=== PATIENT | female | born 1960 | race Caucasian/White ===

== ENCOUNTER 2021-02-22 16:08 | Outpatient (CLI) | payer OTHER, SELFPAY ==
--- NOTE | ~2021-02-22 | MM_ITS ---
EXAMINATION: MM screening ivone BI w candy HISTORY: .... TECHNIQUE: Craniocaudal and mediolateral oblique 3-D tomosynthesis images were obtained and synthetic 2-D images were generated. CAD analysis was submitted and interpreted. COMPARISON: 01/12/2019, 11/21/2017, 11/19/2016 bilateral digital screening mammogram examinations BREAST PARENCHYMAL COMPOSITION: The breasts are almost entirely fatty. FINDINGS: There is no evidence of suspicious mass, calcification, or architectural distortion to sugg est malignancy in either breast. There has been no suspicious interval change. IMPRESSION: 1. No mammographic evidence of malignancy. 2. Recommend routine screening mammography in one year. BI-RADS Category 1: Negative Reviewed, dictated and finalized at location A.
== END 2021-02-22 16:09 | disposition home or self-care (01) ==
LOC: ANHIMG 16:12
PROVIDERS: PCP Family Medicine; Visit Provider Family Medicine
DX: Z12.31 Encounter for screening mammogram for malignant neoplasm of breast (principal)
CPT/HCPCS: 77063; 77067

== ENCOUNTER 2021-10-09 01:35 | Day surgery (SDC) | payer OTHER, SELFPAY ==
[2021-09-25 14:57] VITALS: BMI 25.8
--- NOTE | 2021-10-09 08:23 | WPDANESEPPF ---
Anes - Initial Pre Proc Eval Procedure: Operation Date: 10/09/21 10:00 Proposed Procedures p Screening Colonoscopy - Lonnie Hargrove MD Date/Time: 10/09/21 08:23 Surgeon: Lonnie Hargrove MD Pre Op Diagnosis: hx of colon polyps, neoplasm screening Patient Data Age: 61 Gender: F Height: 1.63 m Weight: 68.2 kg Allergies Allergy/AdvReac Type Severity Reaction Status Date / Time Penicillins Allergy Mild Rash Verified 09/25/21 14:57 Home Medications Medication Instructions Recorded Confirmed Type bupropion HCl 300 mg 24 hr tablet, 300 mg PO DAILY 09/06/21 09/25/21 History extended release sodium sul 1.479 gram-potas ch See Rx Instructions PO PER PKG DIR 09/22/21 09/25/21 Rx 0.188 gram-magnes sul 0.225 gram #24 tabs tablet (Sutab) atorvastatin 40 mg tablet 40 mg PO QHS #90 tabs 09/27/21 10/09/21 Rx Patient hx anesthesia problems: none Family hx anesthesia problems: none Results Review: All pre-operative results and documents have been reviewed as part of the pre-operative evaluation. [facility] Past Medical History Medical History Anxiety Dyslipidemia History of colon polyps History of deep venous thrombosis (DVT) of distal vein of left lower extremity (~2009) History of shingles (~2016) Surgical History Surgical History H/O: hysterectomy (~2012) History of carpal tunnel surgery (~2011) Left - 2012 Right - 2017 Family History Family History Mother Acute myocardial infarction Father Family history of emphysema Social History Social History Smoking status: Never smoker Alcohol intake: current Alcohol use details: 4 beers or less per week Substance use: current Substance use type: marijuana Other substance usage details: gummy marijuana about once a week Living arrangements: other Additional living arrangements comments: [place] - significant other Additional occupation/education comments: Teacher Spiritual care concerns: No Anes - Eval Final PreProcedure Day of Procedure 10/09/21 08:23 Patient weight: normal Heart: regular rate and rhythm Lungs: clear to auscultation and normal air movement Airway: Mallampati scale class II Neurological: alert and oriented Last oral intake: >/= 8 hours ASA classification: II Emergent: no Anesthetic plan: proceed Anesthesia type and monitoring: general GIVS Results Review: All pre-operative results and documents have been reviewed as part of the pre-operative evaluation. Informed Consent: The patient's anesthetic plan and its attendant risks and benefits were discussed with the patient/family/POA. Questions were solicited and answers provided to the satisfaction of the patient/family/POA.
[2021-10-09 08:43] VITALS: BP 111/63; PULSE 62; RESP 17; TEMP 36.6; O2SAT 100; BMI 37.0
[2021-10-09] MEDS: LACTATED RINGERS 1,000 ML 150 ML IV CONT (08:52)
--- NOTE | 2021-10-09 09:18 | P.HP_ITS ---
H&P: HPI History of Present Illness Date/Time: 10/09/21 09:18 Chief Complaint: History of adenomatous colon polyp. Narrative: This is a 61-year-old white female patient who presents for screening colonoscopy. She has a history of a benign adenomatous colon polyp removed from the colon 2016. Patient's current weight appetite bowel movements are normal. She denies abdominal pain. She has had no bleeding. Family history is noncontributory. Review of Systems Review of Systems: Review of systems noncontributory. [facility] Past Medical History Medical History (Updated 10/09/21 @ 09:19 by Lonnie Hargrove MD) Anxiety Dyslipidemia History of colon polyps History of deep venous thrombosis (DVT) of distal vein of left lower extremity (~2009) History of shingles (~2016) Surgical History Surgical History H/O: hysterectomy (~2012) History of carpal tunnel surgery (~2011) Left - 2012 Right - 2017 Family History Family History Mother Acute myocardial infarction Father Family history of emphysema Social History Social History Smoking status: Never smoker Alcohol intake: current Alcohol use details: 4 beers or less per week Substance use: current Substance use type: marijuana Other substance usage details: gummy marijuana about once a week Living arrangements: other Additional living arrangements comments: [place] - significant other Additional occupation/education comments: Teacher Spiritual care concerns: No Meds Home Medications and Allergies Home Medications Medication Instructions Recorded Confirmed Type bupropion HCl 300 mg 24 hr tablet, 300 mg PO DAILY 09/06/21 09/25/21 History extended release sodium sul 1.479 gram-potas ch See Rx Instructions PO PER PKG DIR 09/22/21 09/25/21 Rx 0.188 gram-magnes sul 0.225 gram #24 tabs tablet (Sutab) atorvastatin 40 mg tablet 40 mg PO QHS #90 tabs 09/27/21 10/09/21 Rx Allergies Allergy/AdvReac Type Severity Reaction Status Date / Time Penicillins Allergy Mild Rash Verified 09/25/21 14:57 Vital Signs Vital Signs - 24 hr 06/06/22 08:43 Temperature 97.9 F Pulse Rate 62 Respiratory Rate 17 Blood Pressure 111/63 Pulse Oximetry 100 Oxygen Delivery Room Air Exam Narrative: Physical exam reveals patient to be alert. Vital signs stable. HEENT exam is unremarkable. Patient is anicteric. Lungs are clear to auscultation and percussion. Heart is without murmur or extra sounds. Abdom inal exam bowel sounds are present soft nontender with no organomegaly. Digital external rectal exam is normal. Assessment and Plan Assessment and plan (1) History of colon polyps: Code(s): Z86.010 - Personal history of colonic polyps Status: Acute Assessment and Plan: Patient has a history of adenomatous colon polyps removed at the time of colonoscopy in 2017. Patient presents today for surveillance colonoscopy. High-fiber diet advised.
[2021-10-09] MEDS: SIMETHICONE ORAL SUSPENSION 20 MG/0.3 ML 30 ML BOTTLE 0.6 ML IRRIGATION (09:39)
[2021-10-09 09:49] VITALS: BP 91/46; PULSE 61; RESP 17; O2SAT 97
[2021-10-09 09:59] VITALS: BP 85/42; PULSE 60; RESP 17; O2SAT 97
[2021-10-09 10:07] VITALS: BP 118/68; PULSE 52; RESP 17; O2SAT 98
== END 2021-10-09 10:28 | disposition home or self-care (01) ==
PROVIDERS: PCP Family Medicine; Visit Provider Internal Medicine Gastroenterology
PROC: 0DJD8ZZ Inspection of Lower Intestinal Tract, Via Natural or Artificial Opening Endoscopic (ICD-10-PCS; CPT 45378; principal; 2021-10-09 10:00)
DX: Z12.11 Encounter for screening for malignant neoplasm of colon (principal); K63.5 Polyp of colon; K64.8 Other hemorrhoids; E78.5 Hyperlipidemia, unspecified; F41.9 Anxiety disorder, unspecified; Z86.718 Personal history of other venous thrombosis and embolism; F12.90 Cannabis use, unspecified, uncomplicated
CPT/HCPCS: 45385; 88305; J2704; J7120

== ENCOUNTER 2023-08-06 14:32 | Outpatient (CLI) | payer OTHER, SELFPAY ==
--- NOTE | ~2023-08-06 | MM_ITS ---
EXAMINATION: MM screening ivone BI w candy HISTORY: Screening TECHNIQUE: Craniocaudal and mediolateral oblique 3-D tomosynthesis images were obtained and synthetic 2-D images were generated. CAD analysis was submitted and interpreted. COMPARISON: Comparison to multiple prior studies sequentially, with oldest reviewed study dated 11/21. BREAST PARENCHYMAL COMPOSITION: Not dense: There are scattered areas of fibroglandular density. FINDINGS: There is no evidence of suspicious mass, calcification, or architectural distortion to sugg est malignancy in either breast. There has been no suspicious interval change. IMPRESSION: 1. No mammographic evidence of malignancy. 2. Recommend routine screening mammography in one year. BI-RADS Category 1: Negative Reviewed, dictated and finalized at location A.
== END 2023-08-06 14:33 | disposition home or self-care (01) ==
PROVIDERS: PCP Family Medicine; Visit Provider Family Medicine
DX: Z12.31 Encounter for screening mammogram for malignant neoplasm of breast (principal)
CPT/HCPCS: 77063; 77067

== ENCOUNTER 2024-09-05 08:02 | Outpatient (CLI) | payer OTHER, SELFPAY ==
--- NOTE | ~2024-09-05 | MM_ITS ---
EXAMINATION: MM screening ivone BI w candy HISTORY: Screening TECHNIQUE: Craniocaudal and mediolateral oblique 3-D tomosynthesis images were obtained and synthetic 2-D images were generated. CAD analysis was submitted and interpreted. COMPARISON: Comparison to multiple prior studies sequentially, with oldest reviewed study dated 11/03. BREAST PARENCHYMAL COMPOSITION: Not dense: There are scattered areas of fibroglandular density. FINDINGS: There is no evidence of suspicious mass, calcification, or architectural distortion to sugg est malignancy in either breast. There has been no suspicious interval change. IMPRESSION: 1. No mammographic evidence of malignancy. 2. Recommend routine screening mammography in one year. BI-RADS Category 1: Negative Reviewed, dictated and finalized at location A.
--- OUTSIDE RECORDS SUMMARY | 2024-09-05 15:53 | XMS_ITS | Referral Summary ---
Author Organization [facility] [place] [address] [facility] Address [address] [place] [address] Care Team Providers Care Product Coordinator Name Role Phone Mariela Villa MD Primary Care Provider Allergies Active Allergy Reactions Criticality Noted Date Comments Penicillins Medications buPROPion XL (WELLBUTRIN XL) 300 mg 24 hr tablet Take by mouth daily Active ondansetron (Zofran) 4 mg tabletIndicatio ns:Acute non-recurrent maxillary sinusitis Take 1 tablet (4 mg total) by mouth every 8 (eight) hours as needed for nausea or vomiting 20 tablet 09/10/2021 Active azithromycin (ZITHROMAX) 250 mg tabletIndicatio ns:Acute non-recurrent maxillary sinusitis Take 2 tablets the first day, then 1 tablet daily for 4 days. 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 Gender Identity Not on file Sexual Orientation Not on file Last Filed Vital Signs Vital Sign Reading Time Taken Comments Blood Pressure 116/74 09/10/2021 9:33 AM CDT Pulse 74 09/10/2021 9:33 AM CDT Temperature 36.4 C (97.6 F) 09/10/2021 9:33 AM CDT Respiratory Rate 16 09/10/2021 9:33 AM CDT Oxygen Saturation 98% 09/10/2021 9:33 AM CDT Inhaled Oxygen Concentration - - Weight 66.3 kg (146 lb 3.2 oz) 09/10/2021 9:33 A M CDT Height 161.3 cm (5' 3.5 ) 09/10/2021 9:33 AM CDT Body Mass Index 25.49 09/10/2021 9:33 AM CDT Plan of Treatment Not on file Insurance [facility] CHOICE PLUS Care Teams Product Coordinator Relationship Specialty Start Date End Date Mariela Villa MD PCP - General Family Practice 09/10/21
--- OUTSIDE RECORDS SUMMARY | 2024-09-05 15:53 | XMS_ITS | Clinical Summary ---
Author Organization [facility] [place] [address] [facility] Address [address] [place] [address] Care Team Providers Care Manager Intelligence Name Role Phone Mariela Villa MD Primary [...] Active Active Problems No known active problems Surgical History Surgery Date Site/Laterality Comments HYSTERECTOMY Medical History Medical History Date Comments Anemia Depression Social History Tobacco Use Types Packs/Day Years Used Date Smoking Tobacco: Never Personal Safety Answer Date Recorded Getting School Help Needed Not on file 07/19 Comments Unknown Sex and Gender Information Value Date Recorded Sex Assigned at Not on file 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 Gender Identity Not on file Sexual Orientation Not on file Obstetrics History Last Filed Vital Signs Vital Sign Reading [...] 09/10/2021 9:33 AM CDT Plan of Treatment Health Maintenance Due Date Last Done Comments Breast Cancer Screening-Mammogram 1962 Colon Cancer Screening-Colonoscopy 1962 Depression Screening 1962 Hepatitis C Screening 1962 DTaP/Tdap/Td Vaccine (1 - Tdap) 1973 Hepatitis B Screening 1980 Regular Well Visit/Exam 18-64 1980 Zoster Vaccine (1 of 2) 2012 Covid-19 Vaccine (2023-2 5 season) 2024 07/05/2020, 06/02/2020 Influenza Vaccine (Season Ended) 2025 Pneumococcal vaccine <65 Aged Out No longer eligible based on patient's age to complete this topic Insurance [facility] CHOICE PL[employer] Care Teams Manager Intelligence Relationship Specialty Start Date End Date Mariela Villa MD PCP - General Family Practice 09/10/21
== END 2024-09-05 08:03 | disposition home or self-care (01) ==
LOC: ANHIMG 08:05
PROVIDERS: PCP Family Medicine; Visit Provider Family Medicine
DX: Z12.31 Encounter for screening mammogram for malignant neoplasm of breast (principal)
CPT/HCPCS: 77063; 77067